=== PATIENT | male | born 1985 | race African-American/Black ===

== ENCOUNTER 2022-10-10 10:13 | Day surgery (SDC) | payer OTHER | END 2022-10-10 13:00 | disposition home or self-care (01) | LOC: FASU-ENDO 10:13 | PROVIDERS: ATTEND Internal Medicine Gastroenterology | PROC: 0DBN8ZX Excision of Sigmoid Colon, Via Natural or Artificial Opening Endoscopic, Diagnostic (ICD-10-PCS; principal; 2022-10-10 12:11) | DX: K92.1 Melena (principal); K64.1 Second degree hemorrhoids; K63.5 Polyp of colon | CPT/HCPCS: 88305-TC ==